=== PATIENT | male | born 1960 | race Caucasian/White ===

== ENCOUNTER 2019-10-09 20:29 | Emergency (ER) | payer MEDICARE, MEDICAID ==
[2019-10-09 20:59] VITALS: BP 119/77; PULSE 82
--- NOTE | 2019-10-09 22:11 | EDM.PDOC ---
ED HPI GENERAL MEDICAL PROBLEM - General Chief Complaint: Genitourinary Problem Stated Complaint: URINARY ISSUES Time Seen by Provider: 10/09/19 21:50 Source of Information: Reports: Patient, Old Records, RN History Limitations: Reports: No Limitations - History of Present Illness INITIAL COMMENTS - FREE TEXT/NARRATIVE: 59 yo male here with a complaint that his urine looked like gel before arrival. No pain or fever. Onset: Today, Sudden Onset Date: 10/09/19 Duration: Minutes:, Resolved Prior to Arrival Location: Reports: Pelvis (urine) Quality: Reports: Other (no pain) Severity: Mild Improves with: Reports: Other (? time vs hydration) Worsens with: Reports: Other (? dehydration) Context: Reports: Other (See HPI) Associated Symptoms: Reports: No Other Symptoms Treatments BRAINER: Reports: Other (see below) (drank some Gatorade) - Related Data Allergies Allergy/AdvReac Type Severity Reaction Status Date / Time codeine Allergy Itching Verified 10/09/19 20:47 oxycodone HCl [From Percocet] Allergy Itching Verified 10/09/19 20:47 propoxyphene napsylate Allergy Itching Verified 10/09/19 20:47 [From Darvocet-N 100] Home Meds: Home Meds fluPHENAZine decanoate [fluPHENAZine Decanoate] 50 mg IM Q14D 04/24/15 [History] Past Medical History HEENT History: Reports: Allergic Rhinitis, Impaired Vision Respiratory History: Reports: Asthma, Other (See Below) Other Respiratory History: emphasyma Musculoskeletal History: Reports: Fracture Psychiatric History: Reports: Depression, Psych Hospitalization(s), Schizophrenia Dermatologic History: Reports: Other (See Below) Other Dermatologic History: rash on back - Infectious Disease History Infectious Disease History: Reports: Chicken Pox, Hepatitis C, Measles - Past Surgical History GI Surgical History: Reports: Appendectomy Dermatological Surgical History: Reports: Other (See Below) Social & Family History - Family History Family Medical History: Noncontributory - Tobacco Use Smoking Status *Q: Current Every Day Smoker Years of Tobacco use: 50 Packs/Tins Daily: 1 - Recreational Drug Use Recreational Drug Use: Yes Drug Use in Last 12 Months: Yes Recreational Drug Type: Reports: Marijuana/Hashish, Methamphetamine Other Recreational Drug Type: pot daily, meth just once in a while (last time 5 days ago) Recreational Drug Use Frequency: Daily ED ROS GENERAL - Review of Systems Review Of Systems: See Below Constitutional: Reports: No Symptoms : Reports: Discharge (? urine looked like gel). Denies: Dysuria, Frequency, Hematuria, Incontinence, Urgency, Urinary Retention Skin: Reports: No Symptoms ED EXAM, RENAL/ - Physical Exam Exam: See Below Exam Limited By: No Limitations General Appearance: Alert, WD/WN, No Apparent Distress Back Exam: No: CVA Tenderness (R), CVA Tenderness (L) Extremities: Normal Inspection Neurological: Alert, Oriented, CN II-XII Intact, Normal Cognition, No Motor/Sensory Deficits Psychiatric: Normal Affect, Normal Mood Skin Exam: Warm, Dry, Intact, Normal Color, No Rash Course - Vital Signs Last Recorded V/S: Last Vital Signs Temp 36.8 C 10/09/19 20:58 Pulse 82 10/09/19 20:58 Resp 18 10/09/19 20:58 BP 119/77 10/09/19 20:58 Pulse Ox 96 10/09/19 20:58 - Orders/Labs/Meds Labs: Laboratory Tests 10/09/19 Range/Units 21:55 Urine Color Yellow (YELLOW) Urine Appearance Slightly cloudy A (CLEAR) Urine pH 5.5 (5.0-8.0) Ur Specific [place] >= 1.030 (1.008-1.030) Urine Protein Negative (NEGATIVE) mg/dL Urine Glucose (UA) Negative (NEGATIVE) mg/dL Urine Ketones Negative (NEGATIVE) mg/dL Urine Occult Blood Small H (NEGATIVE) Urine Nitrite Negative (NEGATIVE) Urine Bilirubin Negative (NEGATIVE) Urine Urobilinogen 0.2 (0.2-1.0) EU/dL Ur Leukocyte Esterase Negative (NEGATIVE) Urine RBC 0-5 (0-5) Urine WBC Not seen (0-5) Ur Epithelial Cells Not seen Amorphous Sediment Not seen Urine Bacteria Not seen Urine Mucus Rare Urine Other Departure - Departure Time of Disposition: 22:10 Disposition: Home, Self-Care 01 Condition: Good Clinical Impression: Mild dehydration - Discharge Information *PRESCRIPTION DRUG MONITORING PROGRAM REVIEWED*: Not Applicable *COPY OF PRESCRIPTION DRUG MONITORING REPORT IN PATIENT [place]: Not Applicable Instructions: Dehydration, Adult, [id number] Referrals: Susanna Jimenez [email or web address] [Primary Care Provider] - Additional Instructions: Drink enough fluids so your urine is light yellow in color. Recheck with your provider as needed. Sepsis Event Note (ED) - Evaluation Sepsis Screening Result: No Definite Risk - Focused Exam Vital Signs: Vital Signs Temp Pulse Resp BP Pulse Ox 10/09/19 20:58 36.8 C 82 18 119/77 96 10/09/19 20:57 36.8 C 82 18 119/77 96
== END 2019-10-09 22:15 | disposition home or self-care (01) ==
LOC: JP.ED 20:29
DX: E86.0 Dehydration (principal); J45.909 Unspecified asthma, uncomplicated; F20.9 Schizophrenia, unspecified; F17.210 Nicotine dependence, cigarettes, uncomplicated; Z88.5 Allergy status to narcotic agent; Z88.8 Allergy status to other drugs, medicaments and biological substances; Z88.6 Allergy status to analgesic agent; Z79.899 Other long term (current) drug therapy
CPT/HCPCS: 81001; 99284

== ENCOUNTER 2021-11-11 21:37 | Inpatient (IN) | payer MEDICARE, MEDICAID ==
[2021-11-11] MEDS ORDERED: Sodium Chloride 0.9% 10 ML Syringe FLUSH PRN (21:53)
[2021-11-11] MEDS ORDERED: Sodium Chloride 0.9% 1,000 ML IV SCH (22:00)
[2021-11-11 22:46] LABS: ESTIMATED GFR 53 mL/min (>60); TROPONIN I HIGH SENSITIVITY 22.6 pg/mL (<=60.3)
[2021-11-11] MEDS ORDERED: Potassium Chloride 20 MEQ in Premix Bag 1 BAG IV ONE (22:50)
[2021-11-11] MEDS ORDERED: Lidocaine 1% 5 ML VIAL INJECT ONE (23:16)
[2021-11-11] MEDS ORDERED: Potassium Chloride 100 ML ONE (23:20)
[2021-11-11] MEDS ORDERED: Lidocaine 1% 5 ML VIAL ONE (23:20)
[2021-11-12] MEDS ORDERED: hydrALAZINE 20 MG/ML SDV IVPUSH PRN (01:05)
[2021-11-12] MEDS ORDERED: Potassium Chloride 20 MEQ in Premix Bag 1 BAG IV ONE (01:25)
[2021-11-12] MEDS ORDERED: Promethazine 25 MG Tab PO PRN (01:39)
[2021-11-12] MEDS ORDERED: Acetaminophen/HYDROcodone 325-5 MG Tab PO PRN (01:39)
[2021-11-12] MEDS ORDERED: Promethazine 12.5 MG in Sodium Chloride 0.9% 50 ML IV PRN (01:39)
[2021-11-12] MEDS ORDERED: LORazepam 2 MG/ML SDV IV PRN (01:39)
[2021-11-12] MEDS ORDERED: Morphine 2 MG/ML SYRINGE IVPUSH PRN (01:39)
[2021-11-12] MEDS ORDERED: Acetaminophen 325 MG Tab PO PRN (01:39)
[2021-11-12] MEDS ORDERED: Sodium Chloride 0.9% 1,000 ML IV SCH (01:45)
[2021-11-12] MEDS: hydrALAZINE 20 MG/ML SDV IVPUSH SCH ×2 (03:57→08:29)
[2021-11-12] MEDS ORDERED: Metoprolol Tartrate 25 MG Tab PO SCH (04:00)
[2021-11-12 05:20] LABS: ESTIMATED GFR 63 mL/min (>60)
[2021-11-12] MEDS: NS + KCl 20mEq/L 1,000 ML IV SCH ×3 (06:20→22:49)
[2021-11-12] MEDS ORDERED: Potassium Chloride 20 MEQ Tab.ER PO SCH ×2 (08:00→17:00)
[2021-11-12] MEDS: Lisinopril 20 MG Tab PO SCH (09:43)
[2021-11-12] MEDS: Nystatin Susp 100,000 Unit/ML 5 ML UD Cup PO SCH ×3 (13:31→22:54)
[2021-11-12] MEDS: Potassium Chloride 20 MEQ, Lidocaine 1% 2 ML in Sodium Chloride 0.9% 100 ML IV SCH ×2 (14:29→16:42)
[2021-11-12] MEDS ORDERED: Potassium Chloride 20 MEQ in Premix Bag 2 BAG IV ONE (22:17)
[2021-11-12] MEDS ORDERED: Lidocaine 1% 5 ML VIAL INJECT ONE (22:18)
[2021-11-12] MEDS: Potassium Chloride 100 ML IV SCH (22:44)
[2021-11-13] MEDS: Potassium Chloride 100 ML IV SCH (01:45)
[2021-11-13] MEDS: Nystatin Susp 100,000 Unit/ML 5 ML UD Cup PO SCH ×5 (06:18→21:49)
[2021-11-13] MEDS: Lisinopril 20 MG Tab PO SCH (08:50)
[2021-11-13] MEDS: NS + KCl 20mEq/L 1,000 ML IV SCH (08:56)
[2021-11-14] MEDS: Nystatin Susp 100,000 Unit/ML 5 ML UD Cup PO SCH ×4 (05:14→22:49)
[2021-11-14] MEDS: Lisinopril 20 MG Tab PO SCH (08:26)
[2021-11-15] MEDS: Nystatin Susp 100,000 Unit/ML 5 ML UD Cup PO SCH ×2 (08:07→10:13)
[2021-11-15] MEDS: Lisinopril 20 MG Tab PO SCH (08:13)
[2021-11-15] MEDS ORDERED: Potassium Chloride 20 MEQ Tab.ER PO ONE (10:00)
[2021-11-15 10:05] VITALS: BP 152/82; PULSE 74
== END 2021-11-15 13:45 | disposition home or self-care (01) | DRG 641 ==
LOC: JP.ED 21:37 → JP.ICU 11-12 02:15
PROVIDERS: ADMIT Family Medicine; ATTEND Internal Medicine
DX: E87.6 Hypokalemia (principal); F20.0 Paranoid schizophrenia; I95.1 Orthostatic hypotension; E87.1 Hypo-osmolality and hyponatremia; E86.0 Dehydration; R04.0 Epistaxis; I10 Essential (primary) hypertension; F15.90 Other stimulant use, unspecified, uncomplicated; I45.81 Long QT syndrome; H54.7 Unspecified visual loss; J43.9 Emphysema, unspecified; F32.A Depression, unspecified; F17.210 Nicotine dependence, cigarettes, uncomplicated; J30.9 Allergic rhinitis, unspecified; Z20.822 Contact with and (suspected) exposure to COVID-19; W19.XXXA Unspecified fall, initial encounter; Z86.79 Personal history of other diseases of the circulatory system; Z88.8 Allergy status to other drugs, medicaments and biological substances; Z88.5 Allergy status to narcotic agent; Z86.19 Personal history of other infectious and parasitic diseases; Z90.49 Acquired absence of other specified parts of digestive tract
CPT/HCPCS: 36415; 80053; 81001; 84484; 85025; 93005; 93010; 96361; 96365; 96366; 96375; 99284; 99285; J0360; J3480 ×2; J3490; J7030; U0002; 51798; 70450; 70450-26; 80048; 80305-QW; 83605; 83735; 84132; 85027; 97161-GP; 99232; 99238; A9270-GY

== ENCOUNTER 2021-11-22 15:57 | Emergency (ER) | payer MEDICARE, MEDICAID ==
[2021-11-22 18:21] VITALS: BP 180/114; PULSE 78
[2021-11-22] MEDS ORDERED: Lisinopril 20 MG Tab PO SCH (18:30)
[2021-11-22] MEDS ORDERED: Lisinopril 10 MG Tab ONE (18:36)
[2021-11-22] MEDS ORDERED: Folic Acid 1 MG Tab PO ONE (18:38)
== END 2021-11-22 20:03 | disposition home or self-care (01) ==
LOC: JP.ED 15:57
DX: R53.1 Weakness (principal); I10 Essential (primary) hypertension; E16.2 Hypoglycemia, unspecified; F17.210 Nicotine dependence, cigarettes, uncomplicated; Z88.5 Allergy status to narcotic agent
CPT/HCPCS: 36415; 70450; 80048; 80305; 82607; 82746; 82947; 84443; 85025; 99285; A9270

== ENCOUNTER 2022-02-08 15:36 | Emergency (ER) | payer MEDICARE, MEDICAID ==
[2022-02-08 17:03] VITALS: BP 180/119; PULSE 73
[2022-02-08] MEDS ORDERED: Lisinopril 10 MG Tab PO ONE (17:10)
== END 2022-02-08 17:33 | disposition home or self-care (01) ==
LOC: JP.ED 15:36
DX: I10 Essential (primary) hypertension (principal); N17.9 Acute kidney failure, unspecified; R53.1 Weakness; F17.210 Nicotine dependence, cigarettes, uncomplicated; Z88.5 Allergy status to narcotic agent; Z88.8 Allergy status to other drugs, medicaments and biological substances; Z79.899 Other long term (current) drug therapy; Z90.49 Acquired absence of other specified parts of digestive tract
CPT/HCPCS: 36415; 70450; 80048; 85025; 99285; A9270